=== PATIENT | male | born 1940 | race Caucasian/White ===

== ENCOUNTER 2017-02-18 18:46 | Observation (INO) | payer MEDICARE ==
[~2017-02-18] VITALS: Ht 188 cm; Wt 100.0 kg
[~2017-02-18 18:46] MED LIST: ASPI300S PO; CLOP75 PO; HYDR-3533 PO; HYDR-3580 PO; PRED20 PO; PROP10TA6 PO; [UNRECOGNIZED DRUG - OTHER] PO
[2017-02-18 18:48] VITALS: BP 183/82; PULSE 97; RESP 14; TEMP 97.7; O2SAT 97
[2017-02-18] MEDS ORDERED: ASPIRIN 81 MG CHEW TAB PO ONE (19:45)
[2017-02-18] MEDS ORDERED: SODIUM CHLORID 0.9% 500 ML INJ 500 ML IV ONE (19:45)
[2017-02-18] MEDS ORDERED: SODIUM CHLORIDE 0.9% FLUSH 10 ML FLUSH IVF PRN (19:45)
[2017-02-18] MEDS ORDERED: NITROGLYCERIN 2% OINT 1 GM PACKET TOP ONE (19:45)
[2017-02-18 19:48] VITALS: BP 168/76; PULSE 74; RESP 15; O2SAT 98
[2017-02-18 19:49] VITALS: BP 166/74; PULSE 72; RESP 12; RESP 14; O2SAT 98
[2017-02-18 20:16] LABS: AUTOMATED NEUTROPHIL # 4.1 TH/MM3 (1.8-7.7); BASOPHIL % 0.4 % (0.0-2.0); EOSINOPHIL # 0.2 TH/MM3 (0-0.4); EOSINOPHIL % 2.6 % (0.0-4.0); HEMATOCRIT 40.9 % (39.0-51.0); HEMOGLOBIN 13.9 GM/DL (13.0-17.0); LYMPH % 27.3 % (9.0-44.0); LYMPHOCYTE # 1.9 TH/MM3 (1.0-4.8); MEAN CELL VOLUME 94.5 FL (80.0-100.0); MEAN CORPUSCULAR HEMOGLOBIN 32.1 PG (27.0-34.0); MEAN PLATELET VOLUME 7.8 FL (7.0-11.0); MONO % 11.3 % (0.0-8.0); MONOCYTE # 0.8 TH/MM3 (0-0.9); NEUT % 58.4 % (16.0-70.0); PLATELET COUNT 197 TH/MM3 (150-450); RED BLOOD COUNT 4.33 MIL/MM3 (4.50-5.90); RED CELL DISTRIBUTION WIDTH 13.4 % (11.6-17.2); WHITE BLOOD COUNT 6.9 TH/MM3 (4.0-11.0)
[2017-02-18] MEDS ORDERED: FISH500C (20:21)
[2017-02-18] MEDS ORDERED: TAMS0.4C4 PO (20:21)
[2017-02-18] MEDS ORDERED: PROP10TA6 PO (20:21)
[2017-02-18] MEDS ORDERED: METF500T PO (20:21)
[2017-02-18] MEDS ORDERED: ASPI1TAB57 PO (20:21)
[2017-02-18] MEDS ORDERED: FISH100020 PO (20:21)
[2017-02-18] MEDS ORDERED: ATOR20TA15 PO (20:21)
[2017-02-18] MEDS ORDERED: DIPH25CA PO (20:25)
[2017-02-18] MEDS ORDERED: NIAC500T5 PO (20:25)
[2017-02-18] MEDS ORDERED: [UNRECOGNIZED DRUG - OTHER] PO (20:25)
[2017-02-18] MEDS ORDERED: TURM500C7 PO (20:25)
[2017-02-18 20:31] LABS: INTERNATIONAL NORMALIZED RATIO 1.1 RATIO
[2017-02-18 20:34] LABS: BICARBONATE 27.9 MEQ/L (21.0-32.0); BLOOD UREA NITROGEN 20 MG/DL (7-18); CALCIUM 8.7 MG/DL (8.5-10.1); CHLORIDE 105 MEQ/L (98-107); CREATININE 1.33 MG/DL (0.60-1.30); GLOMERULAR FILTRATION RATE 52 ML/MIN (>89); GLUCOSE,RANDOM 103 MG/DL (74-106); MAGNESIUM 2.1 MG/DL (1.5-2.5); SODIUM (NA) 139 MEQ/L (136-145)
[2017-02-18 20:36] LABS: ALT (GPT) 38 U/L (12-78); AST (GOT) 29 U/L (15-37)
--- NOTE | 2017-02-18 20:38 | PD ---
HPI Chief Complaint: Chest Pain Time Seen by Provider: 19:43 Travel History International Travel<30 days: No Contact w/Intl Traveler<30days: No Traveled to known affect area: No History of Present Illness HPI The patient is a 76-year-old male who presents emergency department for left-sided chest pain. The patient states he developed left sided chest pain yesterday upon wakening. The chest pain felt like "gas bubble" was located left side, nonradiating, not associated with any shortness of breath, nausea, vomiting, or diaphoresis. The patient states he took aspirin, ester constantine, and some Tums with mild alleviation of his symptoms. The patient states he belched and felt slightly better, however, he continued to have left-sided chest tightness. The patient does have a history of CAD with previous stent placement by his needle setter, Dr. French. Patient does have a history of hypertension, hyperlipidemia, tobacco use, but quit smoking 15 years ago. The patient denies any exertional symptoms. Symptoms are mild to moderate, there are no alleviating or exacerbating factors currently for the chest tightness. PFSH Past Medical History Hx Anticoagulant Therapy: Yes (asa) Arthritis: Yes (HANDS AND SHOULDERS) Anxiety: Yes Depression: No Cancer: No Cardiac Catheterization: Yes Cardiovascular Problems: Yes High Cholesterol: Yes Chest Pain: Yes Cerebrovascular Accident: No Diabetes: Yes Patient Takes Glucophage: Yes Diminished Hearing: Yes Endocrine: No Gastrointestinal Disorders: Yes GERD: Yes Genitourinary: No Hypertension: Yes Immune Disorder: No Musculoskeletal: Yes Neurologic: No Psychiatric: Yes Reproductive: No Respiratory: No Integumentary: Yes (LESION R SIDE OF FACE/? SKIN CA) Immunizations Current: No Sleep Apnea: Yes (CPAP MACHINE AT HS) Triglycerides - High: Yes Tetanus Vaccination: > 5 Years Influenza Vaccination: No Past Surgical History Cardiac Surgery: Yes (STENTS) Cholecystectomy: Yes Coronary Artery Bypass Graft: Yes Coronary Stent: Yes (X2 CIRCUMFLEX AND LAD) Other Surgery: Yes (Skin Cancer to scalp removed) Family History Family Myocardial Infarction: Yes (FATHER) Social History Alcohol Use: Yes (1-2 beers weekly) Tobacco Use: No Substance Use: No Allergies-Medications (Allergen,Severity, Reaction): Coded Allergies: No Known Allergies (Unverified , 12/10/14) Reported Meds & Prescriptions Reported Meds & Active Scripts Active Reported Diphenhydramine (Diphenhydramine HCl) 25 Mg Cap 25 Mg PO Q12H Niacin 500 Mg Tab 500 Mg PO DAILY Turmeric (Turmeric Root Extract) 500 Mg Capsule 1 Tab PO DAILY [adv EDTA Megaplus] 1 Tab PO DAILY Fish Oil 1000 mg ([place]-3 Fatty Acids) 300 Mg-1,000 Mg Cap 1,400 Mg PO DAILY Fish Oil ([place]-3 Fatty Acids) 60 Mg-90 Mg-500 Mg Cap Aspirin 81 (Aspirin) 81 Mg Tabdr 81 Mg PO DAILY Metformin (Metformin HCl) 500 Mg Tab 500 Mg PO BIDPC Atorvastatin (Atorvastatin Calcium) 20 Mg Tab 20 Mg PO HS Tamsulosin (Tamsulosin HCl) 0.4 Mg Cap 0.4 Mg PO HS Propranolol (Propranolol HCl) 10 Mg Tab 10 Mg PO DAILY Review of Systems Except as stated in HPI: all other systems reviewed are Neg General / Constitutional: No: Fever HENT: No: Lightheadedness Cardiovascular: Positive: Chest Pain or Discomfort, No: Diaphoresis Respiratory: No: Shortness of Breath Gastrointestinal: Positive: Indigestion, No: Nausea, Vomiting, Abdominal Pain Musculoskeletal: No: Weakness, Edema Neurologic: No: Weakness, Dizziness Physical Exam Narrative GENERAL: Awake, alert, pleasant 76-year-old male who appears his stated age and is in no acute respiratory distress. SKIN: Focused skin assessment warm/dry. HEAD: Atraumatic. Normocephalic. EYES: Pupils equal and round. No scleral icterus. No injection or drainage. ENT: No nasal bleeding or discharge. Mucous membranes pink and moist. NECK: Trachea midline. No JVD. CARDIOVASCULAR: Regular rate and rhythm. No murmur appreciated. Palpation left chest wall does not reproduce symptoms. RESPIRATORY: No accessory muscle use. Clear to auscultation. Breath sounds equal bilaterally. GASTROINTESTINAL: Abdomen soft, non-tender, nondistended. No rebound tenderness. MUSCULOSKELETAL: No obvious deformities. No clubbing. No cyanosis. No edema. NEUROLOGICAL: Awake and alert. No obvious cranial nerve deficits. Motor grossly within normal limits. Normal speech. PSYCHIATRIC: Appropriate mood and affect; insight and judgment normal. Data Data Last Documented VS Vital Signs Date Time Temp Pulse Resp B/P (MAP) Pulse Ox O2 Delivery O2 Flow Rate FiO2 02/18/17 19:49 72 12 166/74 (104) 98 Room Air 02/18/17 18:48 97.7 Orders Orders Electrocardiogram (02/18/17 19:45) Ckmb (Isoenzyme) Profile (02/18/17 19:45) Complete Blood Count With Diff (02/18/17 19:45) Comprehensive Metabolic Panel (02/18/17 19:45) Magnesium (Mg) (02/18/17 19:45) Prothrombin Time / Inr (Pt) (02/18/17 19:45) Act Partial Throm Time (Ptt) (02/18/17 19:45) Troponin I (02/18/17 19:45) Chest, Single Ap (02/18/17 19:45) Ecg Monitoring (02/18/17 19:45) Bilateral Bp Monitoring (02/18/17 19:45) Iv Access Insert/Monitor (02/18/17 19:45) Oximetry (02/18/17 19:45) Oxygen Administration (02/18/17 19:45) Aspirin Chew (Aspirin Chew) (02/18/17 19:45) Nitroglycerin 2% Oint (Nitroglycerin 2% (02/18/17 19:45) Sodium Chloride 0.9% Flush (Ns Flush) (02/18/17 19:45) Sodium Chlorid 0.9% 500 Ml Inj (Ns 500 M (02/18/17 19:45) CKMB (02/18/17 20:00) CKMB% (02/18/17 20:00) Labs Laboratory Tests Test 02/18/17 20:00 White Blood Count 6.9 TH/MM3 Red Blood Count 4.33 MIL/MM3 Hemoglobin 13.9 GM/DL Hematocrit 40.9 % Mean Corpuscular Volume 94.5 FL Mean Corpuscular Hemoglobin 32.1 PG Mean Corpuscular Hemoglobin Concent 34.0 % Red Cell Distribution Width 13.4 % Platelet Count 197 TH/MM3 Mean Platelet Volume 7.8 FL Neutrophils (%) (Auto) 58.4 % Lymphocytes (%) (Auto) 27.3 % Monocytes (%) (Auto) 11.3 % Eosinophils (%) (Auto) 2.6 % Basophils (%) (Auto) 0.4 % Neutrophils # (Auto) 4.1 TH/MM3 Lymphocytes # (Auto) 1.9 TH/MM3 Monocytes # (Auto) 0.8 TH/MM3 Eosinophils # (Auto) 0.2 TH/MM3 Basophils # (Auto) 0.0 TH/MM3 CBC Comment DIFF FINAL Differential Comment Prothrombin Time 11.0 SEC Prothromb Time International Ratio 1.1 RATIO Activated Partial Thromboplast Time 24.9 SEC Blood Urea Nitrogen 20 MG/DL Creatinine 1.33 MG/DL Random Glucose 103 MG/DL Total Protein 7.7 GM/DL Albumin 4.0 GM/DL Calcium Level 8.7 MG/DL Magnesium Level 2.1 MG/DL Alkaline Phosphatase 76 U/L Aspartate Amino Transf (AST/SGOT) 29 U/L Alanine Aminotransferase (ALT/SGPT) 38 U/L Total Bilirubin 0.7 MG/DL Sodium Level 139 MEQ/L Potassium Level 3.9 MEQ/L Chloride Level 105 MEQ/L Carbon Dioxide Level 27.9 MEQ/L Anion Gap 6 MEQ/L Estimat Glomerular Filtration Rate 52 ML/MIN Total Creatine Kinase 187 U/L Creatine Kinase MB 3.2 NG/ML Troponin I LESS THAN 0.02 NG/ML MDM Medical Decision Making Medical Screen Exam Complete: Yes Emergency Medical Condition: Yes Medical Record Reviewed: Yes Interpretation(s) EKG reveals sinus rhythm with sinus arrhythmia. Last Impressions Chest X-Ray 02/18/171944 Signed Impressions: Service Date/Time: Saturday, February 18, 2017 20:03 - CONCLUSION: The lungs are clear. Demar Rahman MD Laboratory Tests Test 02/18/17 20:00 White Blood Count 6.9 TH/MM3 Red Blood Count 4.33 MIL/MM3 Hemoglobin 13.9 GM/DL Hematocrit 40.9 % Mean Corpuscular Volume 94.5 FL Mean Corpuscular Hemoglobin 32.1 PG Mean Corpuscular Hemoglobin Concent 34.0 % Red Cell Distribution Width 13.4 % Platelet Count 197 TH/MM3 Mean Platelet Volume 7.8 FL Neutrophils (%) (Auto) 58.4 % Lymphocytes (%) (Auto) 27.3 % Monocytes (%) (Auto) 11.3 % Eosinophils (%) (Auto) 2.6 % Basophils (%) (Auto) 0.4 % Neutrophils # (Auto) 4.1 TH/MM3 Lymphocytes # (Auto) 1.9 TH/MM3 Monocytes # (Auto) 0.8 TH/MM3 Eosinophils # (Auto) 0.2 TH/MM3 Basophils # (Auto) 0.0 TH/MM3 CBC Comment DIFF FINAL Differential Comment Prothrombin Time 11.0 SEC Prothromb Time International Ratio 1.1 RATIO Activated Partial Thromboplast Time 24.9 SEC Blood Urea Nitrogen 20 MG/DL Creatinine 1.33 MG/DL Random Glucose 103 MG/DL Total Protein 7.7 GM/DL Albumin 4.0 GM/DL Calcium Level 8.7 MG/DL Magnesium Level 2.1 MG/DL Alkaline Phosphatase 76 U/L Aspartate Amino Transf (AST/SGOT) 29 U/L Alanine Aminotransferase (ALT/SGPT) 38 U/L Total Bilirubin 0.7 MG/DL Sodium Level 139 MEQ/L Potassium Level 3.9 MEQ/L Chloride Level 105 MEQ/L Carbon Dioxide Level 27.9 MEQ/L Anion Gap 6 MEQ/L Estimat Glomerular Filtration Rate 52 ML/MIN Total Creatine Kinase 187 U/L Creatine Kinase MB 3.2 NG/ML Troponin I LESS THAN 0.02 NG/ML Differential Diagnosis Differential diagnosis includes ACS, indigestion, GERD, hiatal hernia, esophageal spasm, esophagitis, pleural effusion, pulmonary embolism. Narrative Course IV was established, labs are drawn and sent, and the patient was placed on cardiac telemetry monitoring and continuous pulse oximetry monitoring. EKG was ordered and interpreted. Chest x-ray was obtained. The patient was administered aspirin and Nitropaste. I did review the EMR, the patient did have a previous stent placed by Dr. French. Chest x-rays unremarkable. The patient's initial troponin is negative. The patient will be 23 hour observation to the chest pain center for serial cardiac enzymes and further evaluation by cardiology. The patient is comfortable with this plan of care and disposition. Physician Communication Physician Communication The patient will be 23 hour observation to the chest pain center for serial cardiac enzymes and further evaluation by cardiology. Diagnosis Primary Impression: Chest pain Qualified Codes: R07.9 - Chest pain, unspecified Admitting Information Admitting Physician Requests: Observation Condition: Stable Mark Hoffman MD Feb 18, 2017 20:38
[2017-02-18 20:40] LABS: ALKALINE PHOSPHATASE 76 U/L (45-117); TOTAL BILIRUBIN ADULT 0.7 MG/DL (0.2-1.0); TOTAL PROTEIN 7.7 GM/DL (6.4-8.2); TROPONIN I LESS THAN 0.02 NG/ML (0.02-0.05)
--- NOTE | 2017-02-18 21:18 | RADRPT ---
EXAM DATE/TIME: 02/18/2017 20:03 [facility] COMPARISON: No previous studies available for comparison. INDICATIONS : Left chest pain for 2 days. MEDICAL HISTORY : Cardiovascular disease. SURGICAL HISTORY : Coronary artery stent. ENCOUNTER: Initial ACUITY: 2 days PAIN SCORE: 1/10 LOCATION: Left chest FINDINGS: A single view of the chest demonstrates the lungs to be symmetrically aerated without evidence of mas s, infiltrate or effusion. The cardiomediastinal contours are unremarkable. Degenerative changes in both shoulders. 2.3 cm amorphous ossific density superimposes upon the right subglenoid region.. CONCLUSION: The lungs are clear. Demar Rahman MD on February 18, 2017 at 21:15 Board Certified Radiologist. This report was verified electronically.
[2017-02-18 21:44] VITALS: BP 125/70; PULSE 70; RESP 16; O2SAT 96
[2017-02-18] MEDS ORDERED: ACETAMINOPHEN/HYDROcodone 325 MG/7.5 MG TAB PO PRN (21:45)
[2017-02-18] MEDS ORDERED: ACETAMINOPHEN 500 MG CPLT PO PRN (21:45)
[2017-02-18] MEDS ORDERED: ONDANSETRON HCL 4 MG/2 ML VIAL IV PUSH PRN (21:45)
[2017-02-18] MEDS ORDERED: NITROGLYCERIN 0.4 MG SL 25 TABS/BTL SL PRN (21:45)
[2017-02-18] MEDS ORDERED: SODIUM CHLORIDE 0.9% FLUSH 10 ML FLUSH IV FLUSH PRN (21:45)
[2017-02-18 22:58] VITALS: BP 128/70; PULSE 73; RESP 19; TEMP 97.9; O2SAT 95
[2017-02-18 23:20] LABS: TROPONIN I LESS THAN 0.02 NG/ML (0.02-0.05)
[2017-02-19 01:59] VITALS: BP 113/58; PULSE 71; RESP 18; TEMP 98.2; O2SAT 96
[2017-02-19 03:32] LABS: TROPONIN I LESS THAN 0.02 NG/ML (0.02-0.05)
[2017-02-19 05:13] VITALS: BP 111/62; PULSE 65; RESP 18; TEMP 97.9; O2SAT 96
[2017-02-19 07:32] VITALS: PULSE 65
[2017-02-19 07:43] VITALS: BP 105/54; PULSE 72; RESP 22; TEMP 98.2; O2SAT 95
--- NOTE | 2017-02-19 08:58 | HHI.HP ---
HPI Primary Care Physician Dr. [place], [place] Chief Complaint Chest pain History of Present Illness 76 year old male with known CAD including x2 cardiac stents presents to ER for further evaluation of chest pain. Onset Thursday. Location left mid-auxiliary chest area. Characterized as a "gas bubble." Severity mild. No radiation of pain. Duration constant reporting discomfort so mild often forgetting about discomfort. In fact, he was able to cycle 4 miles without an increase in discomfort. No radiation. No associated symptoms of nausea, vomiting, dyspnea, or diaphoreses. No known precipitating or relieving factors. Notified his daughter yesterday afternoon of discomfort. Took 3 baby aspirins, 2 Tums, and drank a etser constantine reporting belching causing the discomfort to lessen and change characteristic of tightness. No particular movement or position made discomfort better or worse. Taking a deep breath did not affect discomfort. Endorses known history of CAD, follows with Dr. French. Review of Systems General: No fatigue,weakness, fever, chills, or recent illness change in appetite. Has been in his general state of health. HEENT: No QUINONEZ, no vision changes, no nasal congestion or drainage, no dysphasia CV: As stated above. No current chest pain or pressure. No palpitations, intermittent leg pain, or dizziness RESP: No SOB, cough, wheeze, COPD, or recent URI. GI: No nausea, vomiting, bowel changes, diarrhea, constipation, pain, distention , melena, blood in the stool. : No dysuria, urgency, frequency EXT: No lower leg edema, no paraesthesias MS: Right knee discomfort, reporting "bone on bone." Following with his PCP closely to determine plan of care. Continues to be able to cycle daily and remain active. NEURO: No difficulty with balance, LOC, motor/sensory deficits PSYCH: No anxiety, depression SKIN: No rashes, no concerning lesions Past Family Social History Allergies: Coded Allergies: No Known Allergies (Unverified , 12/10/14) Past Medical History CAD, x2 cardiac stents, MP, Type II diabetes, dyslipidemia, hard of hearing Past Surgical History arthroscopic knee surgery Reported Medications Reported Meds & Active Scripts Active Reported Diphenhydramine (Diphenhydramine HCl) 25 Mg Cap 25 Mg PO Q12H Niacin 500 Mg Tab 500 Mg PO DAILY Turmeric (Turmeric Root Extract) 500 Mg Capsule 1 Tab PO DAILY [adv EDTA Megaplus] 1 Tab PO DAILY Fish Oil 1000 mg ([place]-3 Fatty Acids) 300 Mg-1,000 Mg Cap 1,400 Mg PO DAILY Fish Oil ([place]-3 Fatty Acids) 60 Mg-90 Mg-500 Mg Cap Aspirin 81 (Aspirin) 81 Mg Tabdr 81 Mg PO DAILY Metformin (Metformin HCl) 500 Mg Tab 500 Mg PO BIDPC Atorvastatin (Atorvastatin Calcium) 20 Mg Tab 20 Mg PO HS Tamsulosin (Tamsulosin HCl) 0.4 Mg Cap 0.4 Mg PO HS Propranolol (Propranolol HCl) 10 Mg Tab 10 Mg PO DAILY Active Ordered Medications Current Medications Medications (Trade) Dose Ordered Sig/Gali Route Start Time Stop Time Status Last Admin (NS Flush) 2 ml UNSCH PRN IVF 02/18/17 19:45 (NS Flush) 2 ml BID IV FLUSH 02/19/17 09:00 (Tylenol) 500 mg Q4H PRN PO 02/18/17 21:45 ([place] 7.5-325 Mg) 1 tab Q4H PRN PO 02/18/17 21:45 (Zofran Inj) 4 mg Q6H PRN IV PUSH 02/18/17 21:45 (Nitrostat Sl) 0.4 mg Q5M PRN SL 02/18/17 21:45 (Aspirin) 325 mg DAILY PO 02/19/17 09:00 Family History Father stroke in his mid 30s. Mother age 70 myocardial infarction. Social History Known CAD, diabetes type 2, and dyslipidemia. No known hypertension. Former smoker 12 pack year history. Quitting 15 years ago. Endorses active lifestyle working out daily weight lifting, floor exercises, and cycling. Past cardiac testing No recent cardiac testing. Follows with Dr. French. Next appointment scheduled for next month. 06/07/12 ETT-st depression V3-V6 with possible jaw and neck pain resolved 2 minutes into recovery phase. 06/08/12 Cardiac catheterization (Dr. French)-Conclusions: 1. Moderate to severe three vessel coronary disease. 2. Right dominate system. 3. Normal left ventricular function with estimated ejection fraction of 60% 4. Status post successful angioplasty and stent of the left circumflex and angioplasty and stent of the LAD. Physical Exam Vital Signs Vital Signs Date Time Temp Pulse Resp B/P (MAP) Pulse Ox O2 Delivery O2 Flow Rate FiO2 02/19/17 07:43 98.2 72 22 105/54 (71) 95 02/19/17 05:13 97.9 65 18 111/62 (78) 96 02/19/17 02:04 21 02/19/17 01:59 98.2 71 18 113/58 (76) 96 02/18/17 22:58 97.9 73 19 128/70 (89) 95 02/18/17 21:44 70 16 125/70 (88) 96 Room Air 02/18/17 19:49 72 12 166/74 (104) 98 Room Air 02/18/17 19:49 14 98 Room Air 02/18/17 19:48 74 15 168/76 (106) 98 Room Air 02/18/17 18:48 97.7 97 14 183/82 (115) 97 Physical Exam GENERAL: Alert WN, WD, NAD, pleasant, elderly male who appears younger than stated age. HEAD: NC, AT EYES: Sclera clear, conjunctiva without injection ENT: Mucous membranes pink and moist NECK: Supple, no masses CV: RRR, 2/6 systolic murmur, no rub, no gallop, no JVD, S1-S2 no S3-S4. Bilateral carotid bruits R>L possible radiation of systolic murmur. Chest wall nontender with palpation. RESP: Clear lungs throughout bilateral, no crackles, wheeze, rhonchi, symmetrical chest rise, nonlabored, able to speak in full sentences ABD: Soft, NT, ND, no masses, positive bowel tones BACK: No CVAT, no scoliosis EXT: Pulses +24, no dependent edema MS: Normal tone 4 extremities, nontender, no obvious deformities, full range of motion NEURO: CN II through CN XII grossly intact, motor strength 5/5 PSYCH: A+O 3, pleasant affect, appropriate speech, mood, insight and judgment SKIN: Normal turgor, normal texture, no lesions, no rashes, brisk cap refill, even hair distribution Laboratory Laboratory Tests Test 02/18/17 20:00 02/18/17 22:40 02/19/17 02:00 White Blood Count 6.9 Red Blood Count 4.33 Hemoglobin 13.9 Hematocrit 40.9 Mean Corpuscular Volume 94.5 Mean Corpuscular Hemoglobin 32.1 Mean Corpuscular Hemoglobin Concent 34.0 Red Cell Distribution Width 13.4 Platelet Count 197 Mean Platelet Volume 7.8 Neutrophils (%) (Auto) 58.4 Lymphocytes (%) (Auto) 27.3 Monocytes (%) (Auto) 11.3 Eosinophils (%) (Auto) 2.6 Basophils (%) (Auto) 0.4 Neutrophils # (Auto) 4.1 Lymphocytes # (Auto) 1.9 Monocytes # (Auto) 0.8 Eosinophils # (Auto) 0.2 Basophils # (Auto) 0.0 CBC Comment DIFF FINAL Differential Comment Prothrombin Time 11.0 Prothromb Time International Ratio 1.1 Activated Partial Thromboplast Time 24.9 Blood Urea Nitrogen 20 Creatinine 1.33 Random Glucose 103 Total Protein 7.7 Albumin 4.0 Calcium Level 8.7 Magnesium Level 2.1 Alkaline Phosphatase 76 Aspartate Amino Transf (AST/SGOT) 29 Alanine Aminotransferase (ALT/SGPT) 38 Total Bilirubin 0.7 Sodium Level 139 Potassium Level 3.9 Chloride Level 105 Carbon Dioxide Level 27.9 Anion Gap 6 Estimat Glomerular Filtration Rate 52 Total Creatine Kinase 187 168 144 Creatine Kinase MB 3.2 2.8 2.3 Troponin I LESS THAN 0.02 LESS THAN 0.02 LESS THAN 0.02 Result Diagram: 02/18/17199902/18/171999 Imaging Last Impressions Chest X-Ray 02/18/171944 Signed Impressions: Service Date/Time: Saturday, February 18, 2017 20:03 - CONCLUSION: The lungs are clear. Demar Rahman MD Course EKG NSR, left axis, no st t segment changes Caprini VTE Risk Assessment Caprini VTE Risk Assessment: Mod/High Risk (score >= 2) Caprini Risk Assessment Model Point Value = 1 Point Value = 2 Point Value = 3 Point Value = 5 Age 41-60 Minor surgery BMI > 25 kg/m2 Swollen legs Varicose veins or History of unexplained or recurrent spontaneous Oral contraceptives or hormone replacement Sepsis (< 1 month) Serious lung disease, including pneumonia (< 1 month) Abnormal pulmonary function Acute myocardial infarction Congestive heart failure (< 1 month) History of inflammatory bowel disease Medical patient at bed rest Age 61-74 Arthroscopic surgery Major open surgery (> 45 min) Laparoscopic surgery (> 45 min) Malignancy Confined to bed (> 72 hours) Immobilizing plaster cast Central venous access Age >= 75 History of VTE Family history of VTE Factor V Leiden Prothrombin 38450G Lupus anticoagulant Anticardiolipin antibodies Elevated serum homocysteine Heparin-induced thrombocytopenia Other congenital or acquired thrombophilia Stroke (< 1 month) Elective arthroplasty Hip, pelvis, or leg fracture Acute spinal cord injury (< 1 month) Prophylaxis Regimen Total Risk Factor Score Risk Level Prophylaxis Regimen 0-1 Low Early ambulation 2 Moderate Order ONE of the following: *Sequential Compression Device (SCD) *Heparin 5000 units SQ BID 3-4 Higher Order ONE of the following medications: *Heparin 5000 units SQ TID *Enoxaparin/Lovenox 40 mg SQ daily (WT < 150 kg, CrCl > 30 mL/min) *Enoxaparin/Lovenox 30 mg SQ daily (WT < 150 kg, CrCl > 10-29 mL/min) *Enoxaparin/Lovenox 30 mg SQ BID (WT < 150 kg, CrCl > 30 mL/min) AND/OR *Sequential Compression Device (SCD) 5 or more Highest Order ONE of the following medications: *Heparin 5000 units SQ TID (Preferred with Epidurals) *Enoxaparin/Lovenox 40 mg SQ daily (WT < 150 kg, CrCl > 30 mL/min) *Enoxaparin/Lovenox 30 mg SQ daily (WT < 150 kg, CrCl > 10-29 mL/min) *Enoxaparin/Lovenox 30 mg SQ BID (WT < 150 kg, CrCl > 30 mL/min) AND *Sequential Compression Device (SCD) Assessment and Plan Assessment and Plan #1 Atypical chest pain-admitted to chest pain center. Ruled out with 3 sets of EKGs, cardiac enzymes, and monitored overnight. Will be seen and evaluated by Dr. Martin Chacon. Discussed the likelihood of completing an exercise stress test later this morning. Patient agreeable to plan of care. If unremarkable, plan would be to discharge home later this morning. Patient agreeable to plan of care. #2 History of CAD-continue atorvastatin, instructed him to discuss with his PCP aggressive cholesterol management. Discuss also with patient's daughter who is a RN. Recommended repeating cardiac echocardiogram and bilateral carotid ultrasound, discussing with Dr. French at his next office visit scheduled next month. #3 Mild renal insufficiency-discussed in length diabetic guidelines including either an ERICK inhibitor or an ARB. Plan to provide lisinopril 10mg PO QD prescription at discharge. Encouraged him to follow up with PCP and notify PCP of lisinopril being added to medication regimen. Connie Ortega Feb 19, 2017 08:58
[2017-02-19] MEDS ORDERED: ASPIRIN 325 MG TAB PO SCH (09:00)
[2017-02-19] MEDS ORDERED: SODIUM CHLORIDE 0.9% FLUSH 10 ML FLUSH IV FLUSH SCH (09:00)
[2017-02-19] MEDS ORDERED: LISI10TA3 PO (11:13)
--- NOTE | 2017-02-19 11:13 | HHI.DCPOC ---
Discharge Care Plan Diagnosis: (1) Atypical chest pain (2) Hx of coronary artery disease (3) History of heart artery stent Goals to Promote Your Health * To prevent worsening of your condition and complications * To maintain your health at the optimal level Directions to Meet Your Goals Take your medications as prescribed Follow your dietary instruction Follow activity as directed Keep your appointments as scheduled Take your immunizations and boosters as scheduled If your symptoms worsen call your PCP, if no PCP go to Urgent Care Center or Emergency Room Smoking is Dangerous to Your Health. Avoid second hand smoke Call the 24-hour hour crisis hotline for domestic abuse at Connie Ortega Feb 19, 2017 11:12
--- NOTE | 2017-02-19 13:24 | TR ---
Date Performed: 02/19/2017 Time Performed: 10:51:02 DOCTOR: Martin Chacon DRUG LIST: CLINICAL HISTORY: REASON FOR TEST: REASON FOR ENDING: OBSERVATION: CONCLUSION: Marco Antonio protocol completed. Stopped sec to exceeding target heart rate and leg fatigue . Maximum RY=866 Target HR [id number]=947.0% Maximum EP=448/80 Total Exercise Time=3:31. No reprod ches t discomfort. Fair exercise tolerance. Upsloping st segment depression. Rare PVC. Normal bp response. Recovery quick and unremarkable. COMMENTS: Conclusion: Normal treadmill exercise. No evidence of ischemia.
--- NOTE | 2017-02-19 13:29 | EKG ---
Date Performed: 02/18/2017 Time Performed: 22:35:50 PTAGE: 76 years EKG: Sinus rhythm WITH SINUS ARRHYTHMIA LEFT ANTERIOR FASCICULAR BLOCK ABNORMAL ECG PREVIOUS TRACING : 02/18/2017 19.04 Since previous tracing, no significant change noted DOCTOR: Martin Chacon Interpretating Date/Time 02/19/2017 13:28:15
--- NOTE | 2017-02-19 13:30 | EKG ---
Date Performed: 02/18/2017 Time Performed: 19:04:22 PTAGE: 76 years EKG: Sinus rhythm WITH SINUS ARRHYTHMIA LEFT ANTERIOR FASCICULAR BLOCK ABNORMAL ECG PREVIOUS TRACING : 05/30/2013 09.27 Since previous tracing, no significant change noted DOCTOR: Martin Chacon Interpretating Date/Time 02/19/2017 13:29:00
--- NOTE | 2017-02-19 13:33 | EKG ---
Date Performed: 02/19/2017 Time Performed: 02:04:15 PTAGE: 76 years EKG: Sinus rhythm LEFT ANTERIOR FASCICULAR BLOCK ABNORMAL ECG PREVIOUS TRACING : 02/18/2017 22.35 Since previous tracing, no significant change noted DOCTOR: Martin Chacon Interpretating Date/Time 02/19/2017 13:33:29
== END 2017-02-19 13:13 | disposition home or self-care (01) ==
LOC: NEPE 18:46 → NEDA 21:43 → NEPFCDU 22:09
PROVIDERS: ADMIT Internal Medicine Interventional Cardiology; ATTEND Internal Medicine Interventional Cardiology
DX: R07.89 Other chest pain (principal); I25.10 Atherosclerotic heart disease of native coronary artery without angina pectoris; N28.9 Disorder of kidney and ureter, unspecified; I44.4 Left anterior fascicular block; I49.8 Other specified cardiac arrhythmias; E78.5 Hyperlipidemia, unspecified; E11.9 Type 2 diabetes mellitus without complications; H91.90 Unspecified hearing loss, unspecified ear; Z95.5 Presence of coronary angioplasty implant and graft; Z79.899 Other long term (current) drug therapy; Z79.82 Long term (current) use of aspirin; Z79.84 Long term (current) use of oral hypoglycemic drugs; Z87.891 Personal history of nicotine dependence
CPT/HCPCS: 71010; 80053; 82550; 82552; 83735; 84484; 85025; 85610; 85730; 93005; 93017; 99285; G0378; J7040